=== PATIENT | female | born 1950 | race Two or more races ===

== ENCOUNTER 2023-12-15 17:47 | Emergency (ER) | payer OTHER ==
[~2023-12-15] VITALS: Ht 160 cm; Wt 72.1 kg
[2023-12-15] MEDS ORDERED: ALBUTEROL FS 2.5 MG/3 ML VIAL.NEB NEB ONE (19:30)
[2023-12-15] MEDS ORDERED: IPRATROPIUM NEB FS 0.5 MG/2.5 ML AMPUL.NEB NEB ONE (19:30)
[2023-12-15 20:51] VITALS: O2SAT 93
[2023-12-15] MEDS ORDERED: ALBUTEROL FS 2.5 MG/3 ML VIAL.NEB ONE (20:57)
[2023-12-15] MEDS ORDERED: IPRATROPIUM NEB FS 0.5 MG/2.5 ML AMPUL.NEB ONE (20:57)
[2023-12-15 21:01] VITALS: O2SAT 98
[2023-12-15 21:05] VITALS: O2SAT 98
[2023-12-15 21:15] VITALS: O2SAT 99
[2023-12-15] MEDS ORDERED: HYDROCODONE/APAP 5/325MG TABLET ONE (21:20)
[2023-12-15] MEDS ORDERED: HYDROCODONE/APAP 5/325MG TABLET PO ONE (21:30)
[2023-12-15 22:01] VITALS: BP 135/88; TEMP 98.3; O2SAT 95
== END 2023-12-15 22:01 | disposition home or self-care (01) ==
LOC: ER 18:06
DX: S60.221A Contusion of right hand, initial encounter (principal); J44.9 Chronic obstructive pulmonary disease, unspecified; Z88.8 Allergy status to other drugs, medicaments and biological substances; Y08.89XA Assault by other specified means, initial encounter; Y93.89 Activity, other specified; Y92.89 Other specified places as the place of occurrence of the external cause; Y99.8 Other external cause status
CPT/HCPCS: 71045-TC; 73130-TC; A6403